=== PATIENT | male | born 1955 | race Caucasian/White ===

== ENCOUNTER → 2016-11-13 | Outpatient (CLI) | payer BC | END | disposition home or self-care (01) | DX: M17.11 Unilateral primary osteoarthritis, right knee (principal); R26.2 Difficulty in walking, not elsewhere classified; M25.561 Pain in right knee; M25.661 Stiffness of right knee, not elsewhere classified; M62.81 Muscle weakness (generalized); Z74.1 Need for assistance with personal care | CPT/HCPCS: 97110 GP; 97150 GO; 97161 GP; 97165 GO ==

== ENCOUNTER 2016-12-02 23:43 | Inpatient (IN) | payer BC ==
[~2016-12-02] VITALS: Ht 172.7 cm; Wt 121.7 kg
[~2016-12-02 23:43] MED LIST: CARDURA4 MG PO; IRON325 M1 PO
[2016-12-03 10:04] VITALS: BP 135/78
[2016-12-03 16:07] LABS: MCH 29.5 PG (29.0-34.0); MCHC 34.3 G/DL (30.0-36.0); MEAN PLAT.VOLUME 10.8 uM^3 (9.0-12.4); PLATELET COUNT 150 K/uL (156-360); RBC DIS.WIDTH-CV 13.4 % (11.8-14.6); RBC DIS.WIDTH-SD 41.9 % (39-53); WHITE BLOOD COUNT 3.9 K/uL (4.1-10.2)
[2016-12-03 17:04] VITALS: BP 116/59
[2016-12-03 19:31] VITALS: BP 110/62
[2016-12-03 23:55] VITALS: BP 133/72
[2016-12-04 04:20] VITALS: BP 118/67
[2016-12-04 07:04] LABS: HEMATOCRIT 39.3 % (38.0-50.0); MCV 85.6 FL (86-99)
[2016-12-04 07:28] LABS: ANION GAP 7 MEQ/L (2-14); CHLORIDE 102 MEQ/L (99-109); GFR ESTIMATE (CALCULATED) > 59 mL/min/; GLUCOSE 143 mg/dL (70-99); SAMPLE HEMOLYSIS CHECK 0; SAMPLE ICTERIC CHECK 0; SAMPLE LIPEMIA CHECK 0; SODIUM 135 MEQ/L (136-147); UREA NITROGEN (BUN) 18 mg/dL (9-23)
[2016-12-04 12:04] VITALS: BP 125/67
[2016-12-04 15:54] VITALS: BP 113/68
[2016-12-04 20:16] VITALS: BP 140/67
[2016-12-05 00:05] VITALS: BP 119/69
[2016-12-05 04:20] VITALS: BP 128/67
[2016-12-05 06:03] LABS: HEMATOCRIT 35.9 % (38.0-50.0); MCV 85.7 FL (86-99)
[2016-12-05 08:00] VITALS: BP 117/68
[2016-12-05] MEDS ORDERED: CELECOXIB200 MG PO (09:23)
[2016-12-05] MEDS ORDERED: LOVENOX40 MG/0.4 SC (09:23)
[2016-12-05] MEDS ORDERED: ENDOCET 5-3251 EACH PO (09:23)
[2016-12-05] MEDS ORDERED: DOCUSATE SODIU100 MG PO (09:23)
[2016-12-05 12:20] VITALS: BP 131/75
== END 2016-12-05 14:50 | DRG 470 ==
LOC: ENRESERV 23:43 → 2SOUTH 12-03 09:05 → 3WEST 12-03 09:38 → 2SOUTH 12-03 09:38 → 3WEST 12-03 16:44
PROVIDERS: Orthopaedic Surgery
PROC: 0SRC0J9 Replacement of Right Knee Joint with Synthetic Substitute, Cemented, Open Approach (ICD-10-PCS; principal; 2016-12-03)
DX: M17.11 Unilateral primary osteoarthritis, right knee (principal); M21.161 Varus deformity, not elsewhere classified, right knee; N40.0 Benign prostatic hyperplasia without lower urinary tract symptoms; G47.30 Sleep apnea, unspecified; E66.01 Morbid (severe) obesity due to excess calories; Z68.41 Body mass index [BMI] 40.0-44.9, adult; Z82.49 Family history of ischemic heart disease and other diseases of the circulatory system
CPT/HCPCS: 36415; 73560; 80048; 80053; 80061; 83036; 85014; 85018; 85025; 85027; 85610; 85730; 87081; 87641; 97530 GO; C1713; J0690; J1170; J1650; J2250; J2405; J7050